=== PATIENT | male | born 1960 | race Hispanic/Latino ===

== ENCOUNTER 2024-06-30 17:20 | Emergency (ER) | payer SELFPAY ==
[2024-06-30] VITALS (10 sets, daily range): BP systolic 143–202; BP diastolic 75–125
[~2024-06-30] VITALS: Ht 165.1 cm; Wt 73.0 kg
[2024-06-30] MEDS ORDERED: ONDANSETRON HCl 4 MG/2 ML SDV IV ONE (18:15)
[2024-06-30] MEDS ORDERED: MORPHINE SULFATE 4 MG/ML VIAL IV ONE ×2 (18:15→19:00)
[2024-06-30 18:45] LABS: BASO% 0.3 % (0-3); EOS% 0.1 % (0-8); HEMATOCRIT 48.3 % (39.0-50.0); HEMOGLOBIN 15.9 g/dl (14.0-18.0); IMMATURE GRANULOCYTES 0.1 % (0.0-5.0); LYMPH% 9.7 % (15-41); MEAN CELL VOLUME 82.8 fL CALC (80.0-100.0); MEAN CORPUSCULAR HGB 27.3 pG CALC (26.0-32.0); MEAN CORPUSCULAR HGB CONC 32.9 g/dL CAL (32.0-36.0); MONO% 7.3 % (2-13); NEUT# 8.04 thou/uL (1.82-7.42); NEUT% 82.5 % (42-76); RED BLOOD COUNT 5.83 mill/uL (4.70-6.10); RED CELL DISTRI WIDTH 13.3 % (11.5-15.5)
[2024-06-30 18:58] LABS: ALBUMIN 4.7 g/dL (3.2-5.0); BILIRUBIN, TOTAL 0.6 mg/dL (0.2-1.3); CREATININE 0.9 mg/dL (0.7-1.3); POTASSIUM 4.2 mmol/l (3.5-5.1); TOTAL PROTEIN 7.9 g/dL (6.3-8.2)
[2024-06-30] MEDS ORDERED: hydrALAZINE HCL 20 MG/ML VIAL(1 ML) IV ONE (19:15)
== END 2024-06-30 19:57 | DRG 696 ==
LOC: ED 17:20
PROVIDERS: Family Medicine
PROC: 0TJDXZZ Inspection of Urethra, External Approach (ICD-10-PCS; principal; 2024-06-30)
DX: R33.9 Retention of urine, unspecified (principal); I10 Essential (primary) hypertension
CPT/HCPCS: J0360; J2405